=== PATIENT | male | born 1965 | race Caucasian/White ===

== ENCOUNTER → 2016-11-06 | Day surgery (SDC) | payer OTHER ==
[~2016-11-06] VITALS: Ht 175.3 cm; Wt 59.0 kg
[~2016-11-06] MED LIST: KETOROLAC 30 MG/ML VIAL (J1885) IV PRN; LIDOCAINE 1% MDV 20ML VIAL As Ordered ONE; LIDOCAINE 2% INJ 100 MG/5 ML SDV (FOR ANES.) As Ordered ONE; LIDOCAINE W/EPINEPHRINE 1% 20ML VIAL As Ordered ONE; LR 1,000 ML IV SCH; MIDAZOLAM INJ 2 MG/2 ML VIAL (J2250) As Ordered ONE; NORCO, ANEXSIA 5/325MG TABLET (HYDROcodone/ACETAMINOPHEN) PO PRN; ONDANSETRON 4MG/2ML VIAL (J2405) As Ordered ONE; ONDANSETRON 4MG/2ML VIAL (J2405) IV PRN; POLYSPORIN TOPICAL OINTMENT 15GM As Ordered ONE; PROA1AER INH; PROPOFOL 200 MG/20 ML VIAL As Ordered ONE; ROCURONIUM BROMIDE 50 MG/5 ML VIAL As Ordered ONE; SUCCINYLCHOLINE 100 MG/5 ML SYRINGE (J0330) As Ordered ONE; dexameTHASONE 4 MG/ML 1ML VIAL (J1100) IV ONE; fentaNYL 100 MCG/2 ML INJECTION (J3010) As Ordered ONE; fentaNYL 100 MCG/2 ML INJECTION (J3010) IV PRN
[2016-11-06] MEDS: LR 1,000 ML IV SCH ×2 (08:20→08:31)
[2016-11-06 12:45] VITALS: BP 122/68
--- NOTE | 2016-11-18 10:46 | RO ---
DATE OF PROCEDURE: 11/06/2016 PREOPERATIVE DIAGNOSIS: Left tragal mass. POSTOPERATIVE DIAGNOSIS: Left tragal mass. PROCEDURE PERFORMED: Excision of the left posterior tragal mass. SURGEON: Dr. Kvng Barajas [employer] [facility] ATTENDANT: ANESTHESIA: General. CLINICAL PREAMBLE: This 51-year-old man presented to the office with a mass on the posterior surface of the left tragus. Physical examination revealed soft mass on the posterior surface of the left tragal area. Management options including excision of the mass have been discussed. The patient understood and consented to the procedure. DESCRIPTION OF PROCEDURE: Patient was identified in preoperative holding and brought to the operating room in stable condition. The left ear was marked in preoperative holding. He was placed in supine position on the operating room table. General anesthesia was induced followed by orotracheal intubation without incident. Patient prepped and draped in the usual fashion for the procedure. The patient was place on his right side to expose the left ear. The soft palpable mass was palpated on the posterior surface of the tragus. Margin of the mass was then infiltrated with 1% lidocaine with 1:100,000 epinephrine. Incision was then carried around the mass. The mass was then isolated and dissected out en bloc along its capsular margin. A sleeve of skin was excised as it contained the punctum connected to the mass. Hemostasis was achieved using bipolar electrocautery. Skin closure was achieved using #4-0 Monocryl. At the end of the procedure, sponge and instrument counts were correct. No complications encountered. Estimated blood loss was less than 5 mL. General anesthesia was reversed. Patient was extubated and brought to the recovery room in stable condition. edited: 11/19/2016 0829 tkf BETHANY
== END | disposition home or self-care (01) ==
LOC: M SDC 07:36
PROVIDERS: ATTEND Otolaryngology
DX: L72.0 Epidermal cyst (principal); H92.02 Otalgia, left ear; F17.290 Nicotine dependence, other tobacco product, uncomplicated; M12.9 Arthropathy, unspecified; J45.909 Unspecified asthma, uncomplicated; Z88.0 Allergy status to penicillin
CPT/HCPCS: 11441; 88305; 96374; J0330; J1100; J2250; J2405; J3010

== ENCOUNTER → 2017-01-24 | Outpatient (CLI) | payer OTHER ==
[~2017-01-24] MED LIST changes: -KETOROLAC 30 MG/ML VIAL (J1885) IV PRN; -LIDOCAINE 1% MDV 20ML VIAL As Ordered ONE; -LIDOCAINE 2% INJ 100 MG/5 ML SDV (FOR ANES.) As Ordered ONE; -LIDOCAINE W/EPINEPHRINE 1% 20ML VIAL As Ordered ONE; -LR 1,000 ML IV SCH; -MIDAZOLAM INJ 2 MG/2 ML VIAL (J2250) As Ordered ONE; -NORCO, ANEXSIA 5/325MG TABLET (HYDROcodone/ACETAMINOPHEN) PO PRN; -ONDANSETRON 4MG/2ML VIAL (J2405) As Ordered ONE; -ONDANSETRON 4MG/2ML VIAL (J2405) IV PRN; -POLYSPORIN TOPICAL OINTMENT 15GM As Ordered ONE; -PROPOFOL 200 MG/20 ML VIAL As Ordered ONE; -ROCURONIUM BROMIDE 50 MG/5 ML VIAL As Ordered ONE; -SUCCINYLCHOLINE 100 MG/5 ML SYRINGE (J0330) As Ordered ONE; -dexameTHASONE 4 MG/ML 1ML VIAL (J1100) IV ONE; -fentaNYL 100 MCG/2 ML INJECTION (J3010) As Ordered ONE; -fentaNYL 100 MCG/2 ML INJECTION (J3010) IV PRN
[2017-01-24 10:21] LABS: BASO # 0.1 K/mm3 (0.0-0.2); BASO % 1.4 % (0.0-1.0); EOS # 0.2 K/mm3 (0.0-0.50); EOS % 2.3 % (0.0-3.0); LYMPH # 2.5 K/mm3 (1.5-4.5); LYMPH % 34.2 % (24.0-44.0); MEAN CORPUSCULAR HEMOGLOBIN 28.6 pg (27.0-33.0); MEAN CORPUSCULAR HGB CONC 33.3 g/dl (32.0-36.5); MEAN CORPUSCULAR VOLUME 85.9 fl (80.0-96.0); MONO # 0.4 K/mm3 (0.0-0.8); MONO % 5.1 % (0.0-5.0); NEUTROPHILS # 3.7 K/mm3 (1.8-7.7); RED CELL DISTRIBUTION WIDTH 13.7 % (11.5-14.5); WHITE BLOOD COUNT 6.8 K/mm3 (4.0-10.0)
[2017-01-24 10:47] LABS: ALBUMIN 3.5 GM/DL (3.2-5.2); ALBUMIN/GLOBULIN RATIO 1.25 (1.00-1.93); ALKALINE PHOSPHATASE 121 U/L (45-117); ALT/SGPT 20 U/L (12-78); ANION GAP 3 MEQ/L (8-16); AST/SGOT 15 U/L (15-37); BILIRUBIN,TOTAL 0.4 MG/DL (0.2-1.0); BLOOD UREA NITROGEN 10 MG/DL (7-18); CALCIUM LEVEL 8.6 MG/DL (8.5-10.1); CARBON DIOXIDE LEVEL 29 MEQ/L (21-32); CHLORIDE LEVEL 110 MEQ/L (98-107); CREATININE FOR GFR 1.02 MG/DL (0.70-1.30); GLOMERULAR FILTRATION RATE > 60.0 (>56); GLUCOSE, FASTING 93 MG/DL (70-105); POTASSIUM SERUM 4.4 MEQ/L (3.5-5.1); SODIUM LEVEL 142 MEQ/L (136-145); TOTAL PROTEIN 6.3 GM/DL (6.4-8.2)
== END ==
LOC: M LAB 09:31
PROVIDERS: ATTEND Nurse Practitioner Adult Health
DX: Z51.81 Encounter for therapeutic drug level monitoring (principal); Z79.899 Other long term (current) drug therapy

== ENCOUNTER → 2017-01-29 | Outpatient (CLI) | payer OTHER ==
--- NOTE | 2017-01-30 02:26 | REP ---
Clinical: Ischemic heart disease. Technique: PA and lateral. Comparison: 03/04/2016. Findings: Mediastinum and cardiac silhouette are normal. Lung norwood demonstrate chronic interstitial changes which may reflect underlying COPD. No focal consolidation, effusion, or pneumothorax. Skeletal structures intact. Impression: Chronic stable changes. No acute cardiopulmonary process appreciated. Signed by Parker Catherine MD 01/30/2017 02:17 A
--- NOTE | 2017-01-31 00:52 | ECGEPIP ---
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 No significant changes but now slower heart rate Electronically Signed On 01-31-2017 0:51:38 EDT by Vitaliy Rangel
== END ==
LOC: M EKG 10:51
PROVIDERS: ATTEND Nurse Practitioner Adult Health
DX: Z82.49 Family history of ischemic heart disease and other diseases of the circulatory system (principal)

== ENCOUNTER 2017-12-03 16:37 | Emergency (ER) | payer OTHER ==
[2017-12-03] MEDS ORDERED: ISOVUE-370 76% 100ML VIAL (Q9967) As Ordered (18:54)
[2017-12-03] MEDS: NS 1,000 ML IV (18:57)
[2017-12-03] MEDS: MORPHINE 4 MG/ML 1ML VIAL/SYRINGE (J2270) IV ×2 (18:57→22:03)
[2017-12-03 19:09] LABS: BASO # 0.1 10^3/uL (0.0-0.2); BASO % 1.6 % (0.0-1.0); EOS # 0.2 10^3/uL (0.0-0.50); EOS % 2.4 % (0.0-3.0); HEMATOCRIT 50.4 % (42.0-52.0); HEMOGLOBIN 17.1 g/dl (13.5-17.5); IMMATURE GRANULOCYTE % 0.3 % (0-3.0); LYMPH # 3.1 10^3/uL (1.5-4.5); LYMPH % 34.8 % (24.0-44.0); MEAN CORPUSCULAR HEMOGLOBIN 28.3 pg (27.0-33.0); MEAN CORPUSCULAR HGB CONC 33.9 g/dl (32.0-36.5); MEAN CORPUSCULAR VOLUME 83.4 fl (80.0-96.0); MONO # 0.6 10^3/uL (0.0-0.8); NEUTROPHILS # 4.9 10^3/uL (1.8-7.7); NEUTROPHILS % 53.9 % (36.0-66.0); PLATELET COUNT, AUTOMATED 227 10^3/uL (150-450); RED BLOOD COUNT 6.04 10^6/uL (4.30-6.10); RED CELL DISTRIBUTION WIDTH 14.1 % (11.5-14.5)
[2017-12-03] MEDS: GASTROGRAFIN SOLUTION 30ML PO ×2 (19:14→19:41)
[2017-12-03 19:29] LABS: ANION GAP 6 MEQ/L (8-16); BLOOD UREA NITROGEN 16 MG/DL (7-18); CALCIUM LEVEL 8.9 MG/DL (8.5-10.1); CARBON DIOXIDE LEVEL 28 MEQ/L (21-32); CHLORIDE LEVEL 106 MEQ/L (98-107); CREATININE FOR GFR 1.14 MG/DL (0.70-1.30); GLOMERULAR FILTRATION RATE > 60.0 (>56); GLUCOSE, FASTING 93 MG/DL (70-100); POTASSIUM SERUM 3.8 MEQ/L (3.5-5.1); SODIUM LEVEL 140 MEQ/L (136-145)
[2017-12-03] MEDS ORDERED: NORCO 5/325MG TABLET (BULK FOR ED) PO (22:15)
== END 2017-12-03 22:16 | disposition home or self-care (01) ==
LOC: M ED 16:37
DX: K40.90 Unilateral inguinal hernia, without obstruction or gangrene, not specified as recurrent (principal); F17.210 Nicotine dependence, cigarettes, uncomplicated; Z88.0 Allergy status to penicillin
CPT/HCPCS: J2270

== ENCOUNTER 2018-04-14 12:49 | Emergency (ER) | payer OTHER ==
[2018-04-14 13:56] LABS: BASO # 0.1 10^3/uL (0.0-0.2); BASO % 0.8 % (0.0-1.0); EOS # 0.1 10^3/uL (0.0-0.50); EOS % 1.4 % (0.0-3.0); HEMATOCRIT 46.6 % (42.0-52.0); HEMOGLOBIN 15.8 g/dl (13.5-17.5); IMMATURE GRANULOCYTE % 0.3 % (0-3.0); LYMPH # 1.8 10^3/uL (1.5-4.5); LYMPH % 19.7 % (24.0-44.0); MEAN CORPUSCULAR HEMOGLOBIN 28.9 pg (27.0-33.0); MEAN CORPUSCULAR HGB CONC 33.9 g/dl (32.0-36.5); MEAN CORPUSCULAR VOLUME 85.2 fl (80.0-96.0); MONO # 0.7 10^3/uL (0.0-0.8); MONO % 8.1 % (0.0-5.0); NEUTROPHILS # 6.4 10^3/uL (1.8-7.7); NEUTROPHILS % 69.7 % (36.0-66.0); PLATELET COUNT, AUTOMATED 249 10^3/uL (150-450); RED BLOOD COUNT 5.47 10^6/uL (4.30-6.10); RED CELL DISTRIBUTION WIDTH 13.8 % (11.5-14.5); WHITE BLOOD COUNT 9.2 10^3/uL (4.0-10.0)
[2018-04-14 14:44] LABS: ANION GAP 9 MEQ/L (8-16); BLOOD UREA NITROGEN 10 MG/DL (7-18); CALCIUM LEVEL 8.3 MG/DL (8.5-10.1); CARBON DIOXIDE LEVEL 22 MEQ/L (21-32); CHLORIDE LEVEL 108 MEQ/L (98-107); CPK CREATINE PHOSPHOKINASE 76 U/L (39-308); CREATININE FOR GFR 1.02 MG/DL (0.70-1.30); GLOMERULAR FILTRATION RATE > 60.0 (>56); GLUCOSE, FASTING 104 MG/DL (70-100); POTASSIUM SERUM 3.7 MEQ/L (3.5-5.1); SODIUM LEVEL 139 MEQ/L (136-145); TROPONIN I < 0.02 NG/ML (< 0.10)
[2018-04-14 14:45] LABS: CK-MB VALUE MASS < 1.0 NG/ML (<3.6); MB/CK RELATIVE INDEX 1.31 (< OR =4); NT-PRO BNP 113 PG/ML (<125)
== END 2018-04-14 15:34 | disposition home or self-care (01) ==
LOC: M ED 12:49
DX: R07.89 Other chest pain (principal); I45.10 Unspecified right bundle-branch block; J45.909 Unspecified asthma, uncomplicated; J44.9 Chronic obstructive pulmonary disease, unspecified; K40.90 Unilateral inguinal hernia, without obstruction or gangrene, not specified as recurrent; F17.210 Nicotine dependence, cigarettes, uncomplicated; Z88.0 Allergy status to penicillin
CPT/HCPCS: 71046

== ENCOUNTER → 2018-05-12 | Outpatient (CLI) | payer OTHER | LOC: M CARPUL 13:49 | DX: J45.998 Other asthma (principal) | CPT/HCPCS: 94060 ==

== ENCOUNTER → 2018-07-14 | Outpatient (REF) | payer OTHER ==
[2018-07-14 12:58] LABS: ALBUMIN 3.6 GM/DL (3.2-5.2); ALBUMIN/GLOBULIN RATIO 1.16 (1.00-1.93); ALKALINE PHOSPHATASE 135 U/L (45-117); ALT/SGPT 21 U/L (12-78); ANION GAP 8 MEQ/L (8-16); AST/SGOT 16 U/L (7-37); BILIRUBIN,TOTAL 0.4 MG/DL (0.2-1.0); BLOOD UREA NITROGEN 12 MG/DL (7-18); CALCIUM LEVEL 8.5 MG/DL (8.5-10.1); CARBON DIOXIDE LEVEL 27 MEQ/L (21-32); CHLORIDE LEVEL 105 MEQ/L (98-107); CREATININE FOR GFR 1.06 MG/DL (0.70-1.30); GLOMERULAR FILTRATION RATE > 60.0 (>56); GLUCOSE, FASTING 83 MG/DL (70-100); POTASSIUM SERUM 4.9 MEQ/L (3.5-5.1); SODIUM LEVEL 140 MEQ/L (136-145); TOTAL PROTEIN 6.7 GM/DL (6.4-8.2)
== END ==
LOC: M SFHCPLAZ 10:19
DX: B37.2 Candidiasis of skin and nail (principal)
CPT/HCPCS: 80053

== ENCOUNTER 2019-05-04 15:08 | Emergency (ER) | payer MEDICAID, OTHER ==
[~2019-05-04] VITALS: Ht 175.3 cm; Wt 60.4 kg
[~2019-05-04 15:08] MED LIST changes: +NAPR-885 PO; -PROA1AER INH; +PROAAER10 INH
--- NOTE | 2019-05-04 15:51 | REP ---
Right hand four views: There is a nondisplaced fracture in the head/neck of the fifth digit . The carpal. There is no dislocation. Mineralization and joint spaces are otherwise normal. There are no calcifications or foreign bodies. Impression: Fifth digit metacarpal fracture as described. Electronically Signed by Pierce Toledo MD 05/04/2019 03:42 P
[2019-05-04] MEDS ORDERED: FLUT1INH2 PO (16:00)
[2019-05-04] MEDS ORDERED: NORCO, ANEXSIA 5/325MG TABLET (HYDROcodone/ACETAMINOPHEN) PO ONE (21:00)
[2019-05-04] MEDS ORDERED: NORC1TAB7 PO (21:10)
[2019-05-04] MEDS ORDERED: NORCO 5/325MG TABLET (BULK FOR ED) PO ONE (21:15)
[2019-05-04 21:19] VITALS: BP 115/73
== END 2019-05-04 21:30 | disposition home or self-care (01) ==
LOC: M ED 15:08
DX: S62.367B Nondisplaced fracture of neck of fifth metacarpal bone, left hand, initial encounter for open fracture (principal); W22.8XXA Striking against or struck by other objects, initial encounter; Y92.89 Other specified places as the place of occurrence of the external cause; Y99.0 Civilian activity done for income or pay; J44.9 Chronic obstructive pulmonary disease, unspecified; Z88.0 Allergy status to penicillin; F17.210 Nicotine dependence, cigarettes, uncomplicated

== ENCOUNTER 2019-05-05 17:07 | Emergency (ER) | payer OTHER ==
[~2019-05-05] VITALS: Ht 175.3 cm; Wt 61.4 kg
[~2019-05-05 17:07] MED LIST changes: +FLUT1INH2 PO; +NORC1TAB7 PO
[2019-05-05 20:56] VITALS: BP 130/82
== END 2019-05-05 20:54 | disposition home or self-care (01) ==
LOC: M ED 17:07
DX: S62.307D Unspecified fracture of fifth metacarpal bone, left hand, subsequent encounter for fracture with routine healing (principal); X58.XXXD Exposure to other specified factors, subsequent encounter; Y92.89 Other specified places as the place of occurrence of the external cause; J45.909 Unspecified asthma, uncomplicated; J44.9 Chronic obstructive pulmonary disease, unspecified; Z88.0 Allergy status to penicillin

== ENCOUNTER → 2019-12-04 | Outpatient (REF) | payer OTHER | LOC: M LAB REF 13:23 | PROVIDERS: ATTEND Otolaryngology | DX: L72.3 Sebaceous cyst (principal) ==

== ENCOUNTER → 2020-05-19 | Outpatient (CLI) | payer SELFPAY | LOC: M LABSMTC 14:01 | PROVIDERS: ATTEND Pediatrics | DX: Z20.828 Contact with and (suspected) exposure to other viral communicable diseases (principal) ==

== ENCOUNTER → 2020-11-17 | Outpatient (CLI) | payer SELFPAY, OTHER ==
--- NOTE | 2020-11-21 16:38 | SLEEPCENT ---
NOCTURNAL POLYSOMNOGRAPHY DATE: 11/17/2020 ORDERED BY: Benny Arguello D.O. Nocturnal polysomnography was performed for evaluation of sleep physiology in this patient with a history of snoring and nonrestorative sleep. 7 hours and 39 minutes of data were reviewed. There were 376 minutes of sleep identified. Sleep latency was reasonably normal at 17.5 minutes. REM latency was normal at 96 minutes. Sleep architecture was good with three REM cycles noted. Overall sleep efficiency was 84.3%. The electrocardiogram showed a sinus rhythm with some artifact and small complexes were noted. Average heart rate of 60 beats per minute; rate range 46 to 80. EEG showed normal waveforms for wake and sleep stages. No focal events were identified. There were only 18 respiratory events identified of 10 seconds in duration or greater for an apnea-hypopnea index of 2.9. Some limb activity was noted over the entire study; however, limb movement arousal index was only 3. Loud snoring was noted over the course of the study. Some minor oxygen desaturations were seen on seven occasions below 90% for a limited period of time. IMPRESSION: Normal nocturnal polysomnography with snoring.
== END ==
LOC: M SLEEP 20:00
PROVIDERS: ATTEND Internal Medicine Pulmonary Disease
DX: R40.0 Somnolence (principal)

== ENCOUNTER → 2020-12-05 | Outpatient (CLI) | payer OTHER ==
--- NOTE | 2020-12-05 15:29 | REP ---
INDICATION: LUNG SCREENING. COMPARISON: 06/03/2014 TECHNIQUE: Axial noncontrast images from the thoracic inlet to the upper abdomen using low-dose lung screening technique (LDCT). As per the protocol only lung window images were sent to the read station for interpretation. FINDINGS: Once again, there is heavy biapical pleuroparenchymal scarring. Once again, the lung norwood are hyperexpanded ,seen with parenchymal bulla and pleural blebs. The pleural bleb formation is again seen particularly in the lung apical regions left greater than right status quo. In the inferior most part of the right middle lobe there is a stable 6 mm size nodule. No new abnormal nodules, masses, or opacities have developed. IMPRESSION: Stable lung rads category 2 S low-dose screening CT examinations the lungs. No new nodules, however, rather marked emphysematous changes as described above <Electronically signed by Senthil Shin > 12/05/20 [id number]
== END ==
LOC: M RAD 13:15
PROVIDERS: ATTEND Internal Medicine Pulmonary Disease
DX: Z12.2 Encounter for screening for malignant neoplasm of respiratory organs (principal); F17.218 Nicotine dependence, cigarettes, with other nicotine-induced disorders; J94.8 Other specified pleural conditions; R91.1 Solitary pulmonary nodule

== ENCOUNTER 2020-12-26 13:55 | Emergency (ER) | payer OTHER ==
[~2020-12-26] VITALS: Ht 175.3 cm; Wt 60.1 kg
[2020-12-26 13:57] VITALS: BP 141/80
[2020-12-26] MEDS ORDERED: IPRA0.00 (14:06)
[2020-12-26] MEDS ORDERED: ALBU8.5H (14:06)
== END 2020-12-26 16:48 | disposition left against medical advice (07) ==
LOC: M ED 13:55
DX: Z53.21 Procedure and treatment not carried out due to patient leaving prior to being seen by health care provider (principal)

== ENCOUNTER 2021-01-26 13:21 | Emergency (ER) | payer OTHER ==
[~2021-01-26] VITALS: Ht 175.3 cm; Wt 61.4 kg
[~2021-01-26 13:21] MED LIST changes: +ALBU8.5H; +IPRA0.00
[2021-01-26 14:09] VITALS: BP 127/84
--- NOTE | 2021-01-26 21:37 | ECGEPIP ---
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
== END 2021-01-26 14:39 | disposition home or self-care (01) ==
LOC: EDBD 13:21 → M ED 13:21
DX: F43.0 Acute stress reaction (principal); J44.9 Chronic obstructive pulmonary disease, unspecified; J45.909 Unspecified asthma, uncomplicated; Z88.0 Allergy status to penicillin; F17.210 Nicotine dependence, cigarettes, uncomplicated

== ENCOUNTER → 2021-12-27 | Outpatient (CLI) | payer OTHER ==
[~2021-12-27] MED LIST changes: +HYDR-3363 PO; +NAPR-837 PO
== END ==
LOC: M RAD 10:37
PROVIDERS: ATTEND Internal Medicine Pulmonary Disease
DX: Z12.2 Encounter for screening for malignant neoplasm of respiratory organs (principal); F17.218 Nicotine dependence, cigarettes, with other nicotine-induced disorders; R91.8 Other nonspecific abnormal finding of lung field

== ENCOUNTER 2022-08-19 14:44 | Emergency (ER) | payer OTHER, MEDICAID ==
[~2022-08-19] VITALS: Ht 175.3 cm; Wt 60.1 kg
[2022-08-19 14:44] VITALS: BP 149/69
[2022-08-19] MEDS ORDERED: ACETAMINOPHEN 500 MG TAB PO ONE (19:50)
[2022-08-19] MEDS ORDERED: IBUPROFEN 800 MG TAB PO ONE (19:50)
[2022-08-19] MEDS ORDERED: IBUP80TA PO (19:55)
[2022-08-19] MEDS ORDERED: ACET-897 PO (19:55)
== END 2022-08-19 20:25 | disposition home or self-care (01) ==
LOC: M ED 17:52
DX: J84.9 Interstitial pulmonary disease, unspecified (principal); J45.909 Unspecified asthma, uncomplicated; J44.9 Chronic obstructive pulmonary disease, unspecified; F17.200 Nicotine dependence, unspecified, uncomplicated; Z88.0 Allergy status to penicillin